=== PATIENT | male | born 1965 | race Caucasian/White ===

== ENCOUNTER 2019-06-14 12:40 | Outpatient (CLI) | payer OTHER ==
--- NOTE | 2019-06-14 12:55 | RAD ---
EXAM: XR Hand Rt 2 View PROVIDED CLINICAL HISTORY: Disability exam COMPARISON: None FINDINGS: Second MCP joint space loss is demonstrated without periarticular osteophyte formation or chondrocalc inosis evident. Alignment appears anatomic. Joint spaces appear otherwise preserved. No evidence for fracture or other acute osseous abnormality. IMPRESSION: Second MCP joint space loss, which can be seen in the setting of pyrophosphate arthropathy or hemachr omatosis.
--- NOTE | 2019-06-14 12:57 | RAD ---
EXAM: XR Wrist Lt 2 View PROVIDED CLINICAL HISTORY: Pain, disability exam COMPARISON: None FINDINGS: There is presumed healed posttraumatic change involving the distal radius, with loss of radial length and inclination. Osseous excrescences are noted projecting from the dorsal and volar distal radial cortices presumably reflecting healed posttraumatic change. Resultant positive ulnar variance with sc lerosis involving the radial margin of the ulna and adjacent carpus compatible with abutment. Joint spaces appear otherwise preserved. Alignment appears otherwise anatomic. IMPRESSION: Sequela of prior distal radial fracture as described.
== END 2019-06-14 12:41 | disposition home or self-care (01) ==
LOC: BICRAD 12:40
PROVIDERS: ATTEND Internal Medicine
DX: Z02.71 Encounter for disability determination (principal)